=== PATIENT | male | born 2000 | race Caucasian/White ===

== ENCOUNTER 2021-01-17 12:19 | Emergency (ER) | payer OTHER ==
[2021-01-17] MEDS ORDERED: Lidocaine 1% w/Epinephrine 1:100K 20 ML VIAL ONE (12:47)
[2021-01-17] MEDS ORDERED: Boostrix 0.5 ML (Tdap) VIAL ONE (13:04)
== END 2021-01-17 13:09 | disposition home or self-care (01) ==
LOC: BURERS 12:19
DX: S01.01XA Laceration without foreign body of scalp, initial encounter (principal); Z23 Encounter for immunization; W22.8XXA Striking against or struck by other objects, initial encounter
CPT/HCPCS: 12002; 90471; 90715